=== PATIENT | female | born 2000 | race Hispanic/Latino ===

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

== ENCOUNTER 2021-03-29 21:10 | Emergency (ER) | payer MEDICAID ==
[~2021-03-29] VITALS: Ht 154.9 cm; Wt 49.9 kg
[~2021-03-29 21:10] MED LIST: PREN1TAB80 PO
[2021-03-29 21:50] VITALS: BP 132/81
[2021-03-29] MEDS ORDERED: IBUP-2070 PO (22:16)
[2021-03-29] MEDS ORDERED: IBUPROFEN 600 MG TABLET PO ONE (22:30)
== END 2021-03-29 22:54 | disposition home or self-care (01) ==
LOC: EDH 21:10
DX: M25.532 Pain in left wrist (principal); Z79.899 Other long term (current) drug therapy; X50.9XXA Other and unspecified overexertion or strenuous movements or postures, initial encounter; Y93.89 Activity, other specified; Y92.89 Other specified places as the place of occurrence of the external cause; Y99.8 Other external cause status
CPT/HCPCS: 73110